=== PATIENT | female | born 1985 | race Caucasian/White ===

== ENCOUNTER 2020-04-26 13:37 | Outpatient (REF) | payer OTHER, SELFPAY | END 2020-04-26 13:38 | disposition home or self-care (01) | LOC: HO.LAB 13:37 | PROVIDERS: PCP Family Medicine; Visit Provider Internal Medicine | DX: Z20.828 Contact with and (suspected) exposure to other viral communicable diseases (principal) | CPT/HCPCS: 87635 ==

== ENCOUNTER 2022-03-09 10:42 | Emergency (ER) | payer OTHER, SELFPAY ==
[2022-03-09 11:54] VITALS: BP 109/70; PULSE 78; RESP 16; TEMP 36.3; O2SAT 99; BMI 31.7
[2022-03-09 14:07] VITALS: BP 130/80; PULSE 67; RESP 16; TEMP 37.1; O2SAT 100
--- NOTE | 2022-03-09 14:36 | ED.BACK ---
HPI - Back Pain/Injury General Chief Complaint: Back Pain/Injury Stated Complaint: Back Pain has Scoliosis Time Seen by Provider: 03/09/22 13:52 Source: patient Mode of arrival: ambulatory Limitations: no limitations History of Present Illness HPI Narrative: patient presents emergency department for evaluation of mid lateral left-sided back pain/ muscle spasming. She states that this began 2 days ago. She has trialed massage and heat to the area but this is not helping. She states that she has had similar pain on the right in the past approximately 1 year ago that responded to naproxen and a muscle relaxant. She does state that she does heavy lifting and exercise and thinks that she may have pulled a muscle in this area. She denies Fevers, chills, recent unintentional weight loss, chest pain, difficulty breathing, shortness of breath, cough, recent upper respiratory symptoms, history of DVT/ PE, history of coagulation disorders, personal history of cancer. MD elicited complaint: back pain Related Data Previous Rx's Medication Instructions Recorded valacyclovir 500 mg tablet 500 mg PO DAILY #30 tabs 09/11/20 cyclobenzaprine 10 mg tablet 10 mg PO BEDTIME PRN muscle spasm 03/09/22 #7 tabs naproxen 500 mg tablet 500 mg PO BID PRN pain #14 tabs 03/09/22 Allergies Allergy/AdvReac Type Severity Reaction Status Date / Time No Known Allergies Allergy Unverified 03/22/20 15:44 seasonal Allergy Unknown Uncoded 02/15/19 00:00 Review of Systems Review of Systems: Constitutional: No weight loss, fever, chills, weakness or fatigue. HEENT: No visual loss, blurred vision, double vision. No hearing loss, sneezing, congestion, runny nose or sore throat. Skin: No rash or itching. Cardiovascular: No chest pain, chest pressure or chest discomfort. No palpitations or pedal edema. Respiratory: No shortness of breath, cough or sputum production. Gastrointestinal: No anorexia, nausea, vomiting or diarrhea. No abdominal pain or blood in stool. Genitourinary: No burning micturition. No urinary frequency or incontinence. Neurologic: No headache, dizziness, syncope, unilateral weakness, ataxia, numbness or tingling in the extremities. No change in bowel or bladder control. Musculoskeletal: + Back pain as noted in HPI. No joint pain or stiffness. Hematologic: No bleeding or bruising. Lymphatics: No enlarged lymph nodes. Psychiatric:No depression or anxiety. Endocrine: No reports of sweating. No cold or heat intolerance. No polyuria or polydipsia. [facility] Past Medical History Attestation statement: The following information was validated with the patient. Source: old records reviewed Social History Social History Advance Directives: No Advance Directives Information Provided: Yes Physical Exam Vital Signs: Vital Signs: Last Vital Signs Temp 98.8 F 03/09/22 14:07 Pulse 67 03/09/22 14:07 Resp 16 03/09/22 14:07 BP 130/80 03/09/22 14:07 Pulse Ox 100 03/09/22 14:07 O2 Del Method 03/09/22 14:07 BMI result Body Mass Index 31.7 Vital signs have been reviewed as normal and appeared to be correct. Blood pressure normal.? Heart rate normal.? Respiration rate normal. Temperature normal.? Oxygen saturation normal. Appearance: Alert.?Oriented to person, place and time. No acute distress.?Normal affect. Eyes: Pupils equal, round and reactive to light.? ENT: Pharynx normal.?? Neck: Normal inspection.? Neck supple.?? CVS: Heart sounds normal. Normal heart rate and rhythm.? Pulses normal Respiratory: No respiratory distress.? Lung sounds clear to auscultation bilaterally?? Abdomen: Soft and non-tender. Skin: Skin warm and dry.? Normal skin color.? Normal skin turgor.?? Extremities: No lower extremity edema.? No calf ttp? Back: + mild paraspinal lateral Chest wall muscular tenderness from thoracic region No CVA tenderness. No midline spinal tenderness, step-off's, or deformity. Full ROM intact in bilateral lower extremities. No rashes, lesions, areas of induration or fluctuance, or signs of infection noted., Neuro: Moves all extremities spontaneously. 5/5 strength in hip extension/flexion, abduction, adduction. Sensation to light touch intact bilaterally. Patellar and Achilles reflex 2+ bilaterally. No ataxia, gait normal and steady.. No focal neuro deficits. Course Course Course Narrative: Patient is a 36-year-old female no significant past medical history presenting for evaluation of left lateral back/chest wall pain. She is overall well appearing, vital signs are stable, no respiratory distress, speaking clear full sentences. Not consistent with ACS/ PE/ pneumonia. Pain is most consistent with muscular pain, although cannot completely exclude herniated disc. Not consistent with Rib fracture, spinal fracture, spinal infection, epidural abscess, AAA, epidural abscess, or dissection. No high risk past medical history including incontinence, fever, immunosuppression, recent surgery or lumbar puncture, coagulopathy, significant trauma, recent unintentional weight loss, pulsatile mass, history of cancer, history of TB, history of IV drug use that would warrant MRI or CT. No imaging is currently indicated at this time. Plan for discharge home with naproxen and cyclobenzaprine, reviewed worrisome signs and symptoms to return back to emergency department for, advised follow-up with primary care provider, and patient agreed with plan. was discharged home in stable condition ambulatory steady gait out of the emergency department. Discharge Plan Discharge Clinical Impression: Strain of muscle at thorax level Patient Disposition: Home, Self-Care Instructions: Muscle Strain (ED) Additional Instructions: You have been given a new prescription for naproxen to use twice daily for pain, do not take additional [id number] ibuprofen/ Motrin / Advil/ Aleve/ aspirin while taking this medication. You have additionally been given a prescription for cyclobenzaprine, this is a muscle relaxer, it may make you drowsy, please take this at bedtime as needed for pain. Do not drive, consume alcohol, or go to work while taking this medication. Please contact your primary care provider and arrange for a follow-up visit. You may return to the emergency department any new or worsening symptoms or concerns. Prescriptions: New naproxen 500 mg tablet 500 mg PO BID PRN (Reason: pain) Qty: 14 0RF cyclobenzaprine 10 mg tablet 10 mg PO BEDTIME PRN (Reason: muscle spasm) Qty: 7 0RF No Action valacyclovir 500 mg tablet 500 mg PO DAILY Qty: 30 1RF
== END 2022-03-09 14:48 | disposition home or self-care (01) ==
PROVIDERS: Emergency Provider Emergency Medicine; PCP Family Medicine
DX: M54.50 Low back pain, unspecified (principal); Z79.899 Other long term (current) drug therapy
CPT/HCPCS: 99283

== ENCOUNTER 2022-03-31 09:25 | Outpatient (REF) | payer OTHER, SELFPAY ==
[2022-03-31 13:45] LABS: Influenza A PCR NEGATIVE (Negative); Influenza B PCR NEGATIVE (Negative); Resp Syncy Virus RNA Qual PCR NEGATIVE (Negative); SARS COV2 PCR INHOUSE NEGATIVE (Negative)
== END 2022-03-31 09:26 | disposition home or self-care (01) ==
LOC: HO.LAB 09:25
PROVIDERS: Visit Provider Nurse Practitioner Family
DX: Z20.822 Contact with and (suspected) exposure to COVID-19 (principal); J02.0 Streptococcal pharyngitis; J01.90 Acute sinusitis, unspecified
CPT/HCPCS: 0241U

== ENCOUNTER 2022-06-02 08:32 | Outpatient (REF) | payer OTHER, SELFPAY ==
[2022-06-02 11:19] LABS: Appearance Urine Clear; Color Urine Yellow; Glucose Urine UA Negative (Negative); Leukocyte Esterase Urine Negative (Negative); Nitrite Urine Negative (Negative); Specific Gravity - Urine <= 1.005 (1.005-1.025); Urine Blood Negative (Negative); Urine Ketones Negative (Negative); Urine Protein Negative (Neg-Trace)
[2022-06-02 12:26] LABS: Syphilis Screen Nonreactive (Nonreactive)
[2022-06-02 12:28] LABS: HIV AB/AG Nonreactive (Nonreactive); HIV Num 1 0.06 S/CO (0.00-0.99)
[2022-06-02 12:46] LABS: CT PCR NOT DETECTED (Not Detect.); NG PCR NOT DETECTED (Not Detect.)
[2022-06-02 13:01] LABS: Alanine Aminotransferase 20 U/L (0-31); Alkaline Phosphatase 54 U/L (39-117); Anion Gap 10 (12-20); Aspartate Amino Transferase 15 U/L (5-31); Bilirubin Total 0.2 mg/dL (0.0-1.0); Blood Urea Nitrogen 9 mg/dL (9-16); Calcium 9.4 mg/dL (8.4-10.2); Carbon Dioxide 28 mmol/L (22-29); Chloride 105 mmol/L (96-108); Cholesterol 187 mg/dL; Estimated Glomerular Filt Rate > 60; Glucose Fasting 78 mg/dL (60-99); HDL Cholesterol 37 mg/dL; LDL Cholesterol Calculated 131 mg/dl; Potassium 4.5 mmol/L (3.3-5.1); Sodium 138 mmol/L (135-145); TSH reflex Free T4 1.87 uIU/mL (0.32-4.0); Total Protein 6.8 g/dL (6.5-8.0); Triglycerides 97 mg/dL
== END 2022-06-02 08:33 | disposition home or self-care (01) ==
LOC: HO.WFDLDS 08:32
PROVIDERS: Visit Provider Family Medicine
DX: Z00.00 Encounter for general adult medical examination without abnormal findings (principal); Z11.3 Encounter for screening for infections with a predominantly sexual mode of transmission
CPT/HCPCS: 36415; 80053; 80061; 81003; 84443; 86780; 87389; 87491; 87591

== ENCOUNTER 2022-11-19 14:38 | Outpatient (REF) | payer OTHER, SELFPAY ==
[2022-11-20 17:07] LABS: CT PCR NOT DETECTED (Not Detect.); NG PCR NOT DETECTED (Not Detect.)
[2022-11-21 11:40] LABS: BV Int Neg Control Negative (Negative); BV Int Pos Control Positive (Positive)
[2022-11-27 09:23] LABS: HPV mRNA E6/E7 rflx Not Detected (Not Detected)
== END 2022-11-19 14:39 | disposition home or self-care (01) ==
LOC: HO.LNP 14:38
PROVIDERS: PCP Family Medicine; Visit Provider Advanced Practice Midwife
DX: Z01.419 Encounter for gynecological examination (general) (routine) without abnormal findings (principal); Z11.51 Encounter for screening for human papillomavirus (HPV); N92.1 Excessive and frequent menstruation with irregular cycle; N94.3 Premenstrual tension syndrome; R19.8 Other specified symptoms and signs involving the digestive system and abdomen; R13.10 Dysphagia, unspecified
CPT/HCPCS: 0353U; 87480; 87510; 87624; 87660; 88142

== ENCOUNTER 2023-02-10 07:37 | Outpatient (AMB) | payer OTHER, SELFPAY ==
--- NOTE | 2023-02-10 07:40 | A.OFFVIS_ITS ---
Intake Vital Signs 02/10/23 07:41 Height 5 ft 4 in Weight 190 lb 2 oz BMI 32.6 BP 114/66 Blood Pressure Location Lt brachial Position Sitting Pulse 66 Intake Visit Reasons: Dysphagia Intake Note: Patient new consult for dysphagia. Patient cc: swallowing problems with solid/liquid for a year, and acid reflex with burning sensation in her esophagus. Denies any other GI issues. 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 @ noc- waterbrash- No choking-nausea or vomiting however has wt gain-she does eat on the run with her schedule, understandable She does have mild swelling in her hands lower extremities however she has tried to be mindful of her sodium intake No abdominal pain, fever, chills hematemesis or hematochezia No reported bowel issue No cardiac or respiratory issues PFSH Medical History Scoliosis Family History Father Diabetes No family history of mental disorder Maternal Aunt No family history of mental disorder Lung cancer Social History Household Members: Spouse and Children Housing: House Alcohol intake: current Alcohol intake frequency: holidays/special occasions only Patient Tobacco Use Status: Never used Tobacco e-Cigarette/Vaping Use: Never Used service: No Current occupational status: employed Current occupational exposures/hazards: No Cognitive needs: No Hearing needs: No Vision needs: No Female Reproductive History Menstrual Age of Menarche: 10 Review of Systems Const All systems reviewed & are unremarkable except as noted in HPI and below Card Denies chest pain and Denies dyspnea Resp Denies dyspnea GI Denies abdominal pain, Denies change in bowel habits, Reports heartburn, Denies nausea and Denies vomiting Physical Exam Vital Signs: Last Vital Signs Pulse 66 02/10/23 07:41 BP 114/66 02/10/23 07:41 BMI result Body Mass Index 32.6 Const General: cooperative, healthy appearing, comfortable and no acute distress Orientation/consciousness: patient oriented x3 Limitations: no limitations Resp Effort & Inspection: normal respiratory effort and able to speak in complete sentences Auscultation: clear to auscultation bilaterally, no rales, no rhonchi and no wheezes Cardio Rate: regular rate Rhythm: regular rhythm Heart sounds: S1 normal heart sound present and S2 normal heart sound present GI Palpation (GI): Soft to palpation and nontender Auscultation: normal bowel sounds Skin General skin exam: no rashes or lesions noted Neuro General: patient oriented x3 Extrem Other: Mild edema -hands bilaterally General: Yes full ROM Psych Appearance: grossly normal and well kempt Mental Status: mental status grossly normal Speech and movement: Normal speech and movement present and Clear speech present Affect: normal affect Attitude: cooperative Thought process: Normal thought process present Thought content: Normal thought content present Assessment & Plan Assessment & Plan (1) Dysphagia: Comment: Greater than 1 year-liquids to force food bolus to pass Order placed by PCP for barium swallow however not scheduled as of yet No inhaler Code(s): R13.10 - Dysphagia, unspecified Plan: EGD possible dilation (2) GERD (gastroesophageal reflux disease): Comment: GERD, water brash Reflux precautions Continue omeprazole 40 mg will give trial to famotidine 40 mg as well Code(s): K21.9 - Gastro-esophageal reflux disease without esophagitis Plan: Continue omeprazole and add famotidine- Plan EGD possible dilation- r/o stricture, possible hiatal hernia, esophagitis, other endoscopic findings to account for her symptoms Orders: Orders EDG - GI Use Only Today Medications: New famotidine 40 mg PO DAILY 90 days 90 tabs 3RF omeprazole 40 mg (2 x 20 mg) PO DAILY 90 days 180 caps 3RF Patient Instructions: Very pleasant 37-year-old female with dysphagia, persistent GERD with waterbrash We reviewed reflux precautions avoid culprits-to include caffeine, nicotine, chocolate, peppermint, alcohol and remain upright 2-3 hours after eating especially here evening meal Schedule EGD, discussed procedure rare risks, need for escorted due to anesthesia she agrees to proceed Encouraged to call with any questions or concerns Appreciate the opportunity assist in care this pleasant patient Coding Level of Care Code New Pt Level 3 (90633) Diagnoses Dysphagia R13.10 GERD (gastroesophageal reflux disease) K21.9 Time Spent (min) 40
[2023-02-10 07:41] VITALS: BP 114/66; PULSE 66; BMI 32.6
== END 2023-02-10 08:12 | disposition home or self-care (01) ==
LOC: HO.HGIW 07:38
PROVIDERS: PCP Family Medicine; Visit Provider Physician Assistant
DX: R13.10 Dysphagia, unspecified (principal); K21.9 Gastro-esophageal reflux disease without esophagitis
CPT/HCPCS: 99203

== ENCOUNTER → 2023-02-10 07:37 | Outpatient (BNVA) | payer OTHER, SELFPAY | PROVIDERS: PCP Family Medicine; Visit Provider Physician Assistant | DX: K21.9 Gastro-esophageal reflux disease without esophagitis (principal); R13.10 Dysphagia, unspecified | CPT/HCPCS: 99202 ==

== ENCOUNTER 2023-06-30 09:49 | Day surgery (SDC) | payer OTHER, SELFPAY ==
[2023-06-25 11:10] VITALS: BMI 32.6
[2023-06-30 09:54] VITALS: BMI 32.1
[2023-06-30 10:01] VITALS: BP 129/77; PULSE 89; RESP 20; TEMP 36.1; O2SAT 98
[2023-06-30] MEDS: Lactated Ringers 1,000 ML 50 ML IVCONT (10:11)
[2023-06-30 10:21] LABS: UPreg QC Valid YES; Urine Pregnancy NEGATIVE (NEGATIVE)
--- NOTE | 2023-06-30 11:47 | HO.ANESPROP2 ---
[facility] Active Problems Active Problems: All Active Problems (Updated 06/30/23 @ 10:13 by Genie Rivera RN) Dysphagia (Acute) GERD (gastroesophageal reflux disease) (Acute) Problems with swallowing (Acute) Pain with bowel movements (Acute) Premenstrual symptom (Acute) Prolonged menstrual cycle (Acute) Well woman exam with routine gynecological exam (Acute) Adult general medical exam (Acute) Screening for cervical cancer (Acute) Breast cancer screening by mammogram (Acute) Low HDL (under 40) (Acute) Elevated LDL cholesterol level (Acute) History of lumpectomy of right breast (Acute) History of viral meningitis (Acute) Laboratory exam ordered as part of routine general medical examination (Acute) Acute sinus infection (Acute) Strep pharyngitis (Acute) Scoliosis (Acute) Past Medical History Medical History (Updated 06/30/23 @ 10:13 by Genie Rivera RN) Hx: meningitis GERD (gastroesophageal reflux disease) Scoliosis Patient : No Family History Family History Father Diabetes No family history of mental disorder Maternal Aunt No family history of mental disorder Lung cancer Family history of problems with anesthesia: No Surgical History Surgical History (Updated 06/30/23 @ 10:13 by Genie Rivera RN) Hx of wisdom tooth extraction Hx of lumpectomy Surgical history unknown History of Problems with Anesthesia: No Social History Social History Household Members: Spouse and Children Housing: House Alcohol intake: current Alcohol intake frequency: holidays/special occasions only Patient Tobacco Use Status: Never used Tobacco e-Cigarette/Vaping Use: Never Used Are you DNR?: No Advance Directives: No Advance Directives Information Provided: Yes Recently lost weight without trying: No Nutrition Risks: No Nutritional Risk Patient : No service: No Current occupational status: employed Current occupational exposures/hazards: No Cognitive needs: No Hearing needs: No Vision needs: No Meds Allergies Allergy/AdvReac Type Severity Reaction Status Date / Time No Known Allergies Allergy Verified 12/24/22 08:41 Active Medications: Current Medications Lactated Ringer's (Lr) 1,000 mls @ 50 mls/hr IVCONT .Q20H ANAIS Last Admin: 06/30/23 10:11 Dose: 50 mls/hr Ondansetron HCl (Ondansetron Hcl 4 Mg/2 Ml Vial) 4 mg IVPUSH ONCE PRN PRN Reason: Nausea and Vomiting Exam Height,Weight and Vital Signs: Height 5 ft 4 in Weight 84.912 kg Last Vital Signs Temp 97 F 06/30/23 10:01 Pulse 89 06/30/23 10:01 Resp 20 06/30/23 10:01 BP 129/77 06/30/23 10:01 Pulse Ox 98 06/30/23 10:01 O2 Del Method Room Air 06/30/23 10:01 Pertinent Lab Results Pertinent Lab Results: Laboratory Tests 06/30/23 09:50 Urine Test NEGATIVE Airway Mallampati Class: II TM Dist: >3cm Neck ROM: Full Loose/Missing/Broken Teeth: No Heart: rrr Lungs: clear Assessment and Plan Final Anesthetic Review Family History of Problems with Anesthesia: No History of Problems with Anesthesia: No ASA Class: II Final Preanesthetic Review: No Changes in Pt Med Stat, Meds/Allgs Chart Reviewed, Consent Obtained/Reviewed and Anes Risks/Benef Reviewed Patient Risk: Low Procedure Risk: Low Anesthetic Plan Anesthetic Plan: MAC: Disposition: Standard PACU
--- NOTE | 2023-06-30 11:49 | P.HPSUR_ITS ---
Pre-Procedural Eval Section A Date of Service: 06/30/23 Section B Chief Complaint: Dysphagia, unspecified Relevant Family History (Specify if Yes): No Relevant Social History: None Present Medications: see Short Stay Collaborative assessment Medical History: Significant History (Scoliosis) History of Previous Operations: No relevant previous surgery Allergies: Allergies Allergy/AdvReac Type Severity Reaction Status Date / Time No Known Allergies Allergy Verified 12/24/22 08:41 Review of Systems Sugical H&P ROS: Negative: Constitution, Cardiovascular, Respiratory, Neurological, Psychiatric, Hem-Onc, Allergic/Immunologic, Gastrointestinal, Genitourinary, Musculoskeletal, Integumentary, Endocrine and Eyes/Ears/Nose/Throat Exam Surgical H&P Exam: Normal: HEENT, Normal: Heart, Normal: Lungs, Normal: Extr emities, Normal: Abdomen, Normal: Skin and Normal: Neurological Plan Diagnosis/Plan: Unchanged I have reviewed the history and physical and performed a pertinent physical examination on my patient. No changes have occurred unless specified. Time Spent With Patient Time: Total time managing care of this patient today ____ minutes.
--- NOTE | 2023-06-30 12:16 | W.PM.OPN ---
Operative Note Operative Note Date of Service: 06/30/23 Narrative: Procedure Description: EGD Indication: GERD and dysphagia Anesthesia: MAC FLEXIBLE TRANSORAL UPPER GASTROINTESTINAL ENDOSCOPY UPPER ENDOSCOPY Consent: Indications for the procedure and potential complications of bleeding, perforation, reaction to medications and missed diagnosis were discussed with the patient and informed consent was obtained. Instrument: Olympus GIF H 190 J mid size upper endoscope Monitoring: Vital signs and clinical assessment, continuous EKG monitoring, Pulse oximetry, Carbon Dioxide monitoring and blood pressure monitoring were done throughout the procedure. Procedure: The patient was placed in the left lateral decubitis position and pre-procedure medications were administered and a bite block was placed. The endoscope was inserted into the mouth and advanced under direct vision to the third part of duodenum. A careful inspection was made as the upper endoscope was withdrawn including a retroflexed examination of the proximal stomach; Findings and interventions are described below. Findings: Larynx:normal Esophagus: GE junction at 33 cm, diaphragm hiatus at 36 cm, consistent with 3 cm sliding hiatal hernia, thick inflammed schatzki ring noted, dilated with balloon to 19 mm with some disruption noted, bx taken from GEJ, distal and proximal esophagus. proximal esophagus dilated to 17 mm Stomach: Patchy gastric erythema. Biopsies were obtained. Grade 2 flap valve on retroflexed examination of the cardia with hiatal hernial sac noted. Duodenum: Normal bulb and descending duodenum, Intervention: Biopsies as noted above, balloon dilation Impression/Findings: schatzki ring esophagitis hiatal hernia gastritis PLAN: reflux precautions check PPi compliance, consider changing PPI surgical referral for hiatal hernia repair can be discussed
[2023-06-30 12:18] VITALS: BP 117/85; PULSE 103; RESP 20; TEMP 36.8; O2SAT 97
[2023-06-30 12:33] VITALS: BP 127/70; PULSE 92; RESP 20; TEMP 36.7; O2SAT 98
== END 2023-06-30 14:01 | disposition home or self-care (01) ==
PROVIDERS: Anesthesiology; PCP Family Medicine; Visit Provider Internal Medicine Gastroenterology
PROC: 0DJ08ZZ Inspection of Upper Intestinal Tract, Via Natural or Artificial Opening Endoscopic (ICD-10-PCS; CPT 43235; principal; 2023-06-30 14:00)
DX: K22.2 Esophageal obstruction (principal); K20.80 Other esophagitis without bleeding; K21.9 Gastro-esophageal reflux disease without esophagitis; K44.9 Diaphragmatic hernia without obstruction or gangrene; K29.50 Unspecified chronic gastritis without bleeding; Z79.899 Other long term (current) drug therapy
CPT/HCPCS: 43249; 43239; 81025; 88305; 88342; C1726; J2704

== ENCOUNTER → 2023-06-30 09:49 | Outpatient (BNV) | payer OTHER, SELFPAY | PROVIDERS: PCP Family Medicine; Visit Provider Internal Medicine Gastroenterology | DX: K22.2 Esophageal obstruction (principal); K20.90 Esophagitis, unspecified without bleeding; K29.70 Gastritis, unspecified, without bleeding; K44.9 Diaphragmatic hernia without obstruction or gangrene | CPT/HCPCS: 43239; 43249 ==

== ENCOUNTER 2023-08-10 14:41 | Outpatient (AMB) | payer OTHER, SELFPAY ==
--- NOTE | 2023-08-10 14:42 | A.OFFVIS_ITS ---
Intake Vital Signs 08/10/23 14:44 Height 5 ft 4 in Weight 187 lb BMI 32.1 Blood Pressure Location Lt brachial Position Sitting Intake Visit Reasons: f/u egd Intake Note: Patient follow up for EGD results. Patient cc: abdominal bloating, acid reflex with burning sensation with a lot of gasses and some swallowing problems with liquid and solid. 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 VITAL SIGNS:see workflow HEENT: Nonicteric sclerae, PERRLA, EOMI. Oropharynx clear. Moist mucous memb ranes. Conjunctivae appear well perfused. No thyroid mass. CHEST: Chest wall is nontender. HEART: Regular rate and rhythm without murmurs. LUNGS: Clear to auscultation bilaterally. ABDOMEN: Soft, positive bowel sounds, nontender, no organomegaly.no flank tenderness SKIN: No rash, no excessive bruising, petechiae, or purpura. NEUROLOGIC: Cranial nerves II-XII intact without motor/sensory deficit. 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 and GERD changes on path PLAN: 1/ High dose PPI BID, can cut down after next visit depending on response 2/ advised to take MV and vit D suppleme nt 3/ repeat EGD in 3-5 yrs or so if ongoing issues then manometry [facility] Medical History (Updated 08/10/23 @ 15:26 by Carli Glover MD) Hx: meningitis GERD (gastroesophageal reflux disease) Scoliosis Surgical History History of esophagogastroduodenoscopy (EGD) Hx of wisdom tooth extraction Hx of lumpectomy Surgical history unknown Family History Father Diabetes No family history of mental disorder Maternal Aunt No family history of mental disorder Lung cancer Social History Household Members: Spouse and Children Housing: House Alcohol intake: current Alcohol intake frequency: holidays/special occasions only Patient Tobacco Use Status: Never used Tobacco e-Cigarette/Vaping Use: Never Used service: No Current occupational status: employed Current occupational exposures/hazards: No Cognitive needs: No Hearing needs: No Vision needs: No Female Reproductive History Menstrual Age of Menarche: 10 Physical Exam Vital Signs: BMI result Body Mass Index 32.1 Assessment & Plan Assessment & Plan (1) Dysphagia: Code(s): R13.10 - Dysphagia, unspecified Plan: PLAN: 1/ High dose PPI BID, can cut down after next visit depending on response 2/ advised to take MV and vit D supplement 3/ repeat EGD in 3-5 yrs or so if ongoing issues then manometry (2) GERD (gastroesophageal reflux disease): Comment: GERD, water brash Reflux precautions Continue omeprazole 40 mg will give trial to famotidine 40 mg as well Code(s): K21.9 - Gastro-esophageal reflux disease without esophagitis Plan: PLAN: 1/ High dose PPI BID, can cut down after next visit depending on response 2/ advised to take MV and vit D supplement 3/ repeat EGD in 3-5 yrs or so if ongoing issues then manometry Medications: New esomeprazole magnesium 40 mg PO BID 90 caps 2RF Discontinued esomeprazole magnesium Discontinued Reason: Doctor's Order 20 mg PO DAILY 90 caps 2RF omeprazole Discontinued Reason: Doctor's Order 40 mg PO DAILY 30 days 30 caps 3RF Coding Level of Care Code Est Pt Level 3 (67132) Diagnoses Dysphagia R13.10 GERD (gastroesophageal reflux disease) K21.9
[2023-08-10 14:44] VITALS: BMI 32.1
== END 2023-08-10 15:27 | disposition home or self-care (01) ==
PROVIDERS: PCP Family Medicine; Visit Provider Internal Medicine Gastroenterology
DX: R13.10 Dysphagia, unspecified (principal); K21.9 Gastro-esophageal reflux disease without esophagitis
CPT/HCPCS: 99213

== ENCOUNTER → 2023-08-10 14:41 | Outpatient (BNVA) | payer OTHER, SELFPAY | PROVIDERS: PCP Family Medicine; Visit Provider Internal Medicine Gastroenterology | DX: R13.10 Dysphagia, unspecified (principal); K21.9 Gastro-esophageal reflux disease without esophagitis; Z98.890 Other specified postprocedural states | CPT/HCPCS: 99212 ==

== ENCOUNTER 2023-11-20 08:47 | Outpatient (AMB) | payer OTHER, SELFPAY ==
[2023-11-20 09:06] VITALS: BP 124/70; PULSE 79; O2SAT 99; BMI 34.6
--- NOTE | 2023-11-20 09:06 | A.OFFPC_ITS ---
Vital Signs 11/20/23 09:06 Height 5 ft 4 in Weight 201 lb 6 oz BMI 34.6 BP 124/70 Blood Pressure Location Lt brachial Position Sitting Pulse 79 Pulse Source Pulse Oximeter Pulse Oximetry (%) 99 Oxygen Delivery Method Room Air Intake Visit Reasons: Extended exam with f/u labs and health maintenance Intake Note: Patient is here for her physical today. Patient would like her hormones checked, too. Allergies No Known Allergies Allergy (Verified 11/20/23 09:07) Medication List - Last Reconciled 11/20/23 by Jason Medina MD esomeprazole magnesium 40 mg PO BID famotidine 40 mg PO DAILY 90 days fluticasone propionate 50 mcg/actuation (Flonase Allergy Relief) 1 spray intranasal Q12H Tobacco use date assessed: 11/20/23 Dental Screening Dental Screen Date: 11/20/23 Did you have a dental visit in the last 12 months?: No Did you have a dental problem in the last 6 months where you did not have access to dental care?: Yes Was dental information given to patient?: Yes HPI Extended exam with f/u labs and health maintenance HPI Details 38 y/o female presents for an extended e xam with f/u labs and health maintenance. No recent CPE-labs to review. Pt requests to get her hormones checked. Hx of elevated LDL cholesterol at 131. Last pap smear was normal per pt. HPI Comments History of Present Illness Details Documentation assistance for Jason Medina MD, was provided by Forrest Murray, Senior Communications Engineer on 11/20/2023 9:19 AM EST. Bass, Dr. Medina, have read, observed, and verified documentation. PFSH Medical History Hx: meningitis GERD (gastroesophageal reflux disease) Scoliosis Surgical History History of esophagogastroduodenoscopy (EGD) Hx of wisdom tooth extraction Hx of lumpectomy Surgical history unknown Family History Father Diabetes No family history of mental disorder Maternal Aunt No family history of mental disorder Lung cancer Social History Household Members: Spouse and Children Housing: House Alcohol intake: current Alcohol intake frequency: holidays/special occasions only Patient Tobacco Use Status: Never used Tobacco e-Cigarette/Vaping Use: Never Used service: No Current occupational status: employed Current occupational exposures/hazards: No Cognitive needs: No Hearing needs: No Vision needs: No Female Reproductive History Menstrual Age of Menarche: 10 Questionnaire PHQ-9 Over the last 2 weeks, how often have you been bothered by any of the following problems? 1. Little interest or pleasure in doing things: not at all 2. Feeling down, depressed, or hopeless: not at all 3. Trouble falling or staying asleep, or sleeping too much: nearly every day 4. Feeling tired or having little energy: several days (Once in a while) 5. Poor appetite or overeating: not at all 6. Feeling bad about yourself - or that you are a failure or have let yourself or your family down: not at all 7. Trouble concentrating on things, such as reading the newspaper or watching television: several days 8. Moving or speaking so slowly that other people could have noticed. Or the opposite - being so fidgety or restless that you have been moving around a lot more than usual: nearly every day 9. Thoughts that you would be better off or of hurting yourself in some way: not at all Total score: 8 Depression Screening Interpretation: Positive Depression Screening Done: Yes 65793 - PHQ-9 Billing: Yes Source: Developed by Drs. Talat Marti, Nallely Green, Iam Pruitt and colleagues, with an educational marge from [employer]. Thrive Questionnaire Date Thrive assessed: 11/20/23 I am a: Patient What is your living situation today?: I have a steady place to live Within the past 12 months, did the food you bought not last and you didn't have the money to get more?: Never true Within the past 12 months, did you worry whether your food would run out before you got money to buy more?: Never true Do you have trouble paying for medicines?: No Do you have trouble getting transportation to medical appointments?: No Do you have trouble paying your heating and electricity bill?: No Do you have trouble taking care of your child, family member or friend?: No Do you have trouble with day-to-day activities such as bathing, preparing meals, shopping, managing finances, etc.?: No Are you currently unemployed and looking for a job?: No Are you interested in more education?: No THRIVE Score: 0 AUDIT C Alcohol Use Questionnaire (AUDIT-C) 1. How often do you have a drink containing alcohol?: Never 3. How often do you have six or more drinks on one occasion?: Never Total Score: 0 BHARATH-7 AMB Questionnaire BHARATH-7 Date BHARATH - 7 assessed: 11/20/23 Feeling nervous, anxious, or on edge: 0 = Not at all Not being able to stop or control worryin = Not at all Worrying too much about different things: 0 = Not at all Trouble relaxin = Several days Being so restless that it is hard to sit still: 3 = Nearly every day Becoming easily annoyed or irritable: 1 = Several days Feeling afraid as if something awful might happen: 0 = Not at all Total BHARATH-7 score (0-4 normal; 5-9 mild; 10-14 moderate; 15-21 severe): 5 Source: Developed by Drs. Talat Marti, Nallely Green, Iam Pruitt and colleagues, with an educational marge from [employer]. BHARATH-7 Assessment Billing BHARATH-7 Assessment Tool: BHARATH-7 Assessment 10191 Review of Systems Const Denies chills, Denies fatigue, Denies fever(s), Denies headache(s) and Denies weakness Eyes Denies change in vision ENT Denies dizziness, Denies headache(s), Denies hearing loss, Denies nasal congestion, Denies sinus pain, Denies sinus pressure and Denies sore throat Card Denies chest pain, Denies lightheadedness, Denies dyspnea and Denies other (palpitations) Resp Denies cough, Denies dyspnea and Denies wheezing GI Denies abdominal pain, Denies melena, Denies hematochezia, Denies change in bowel habits, Denies dyspepsia and Denies nausea Denies hematuria and Denies dysuria Musc Denies abnormal gait, Denies myalgias, Denies arthralgias, Denies numbness and Denies tingling Skin/Breast Denies rash, Denies unusual bruising and Denies wounds Neuro Denies abnormal gait, Denies dizziness, Denies headache(s), Denies memory loss, Denies numbness, Denies Sensory deficit (Neuro), Denies tingling and Denies weakness Psych Denies anxiety, Denies depression and Denies memory loss Endo Denies cold intolerance, Denies fatigue, Denies heat intolerance, Denies polydipsia and Denies polyuria Govind/Lymph Denies easy bleeding and Denies easy bruising Aller/Immun Denies wheezing Physical exam (Primary Care) Vital Signs: Last Vital Signs Pulse 79 11/20/23 09:06 BP 124/70 11/20/23 09:06 Pulse Ox 99 11/20/23 09:06 Oxygen Delivery Method Room Air 11/20/23 09:06 BMI result Body Mass Index 34.6 Tobacco/Smoking Status: Tobacco use Status Tobacco use date assessed 11/20/23 11/20/23 09:12 Patient Tobacco Use Status Never used Tobacco 11/20/23 09:06 e-Cigarette/Vaping Use Never Used 11/20/23 09:06 PHQ-9: PHQ-9 Score PHQ-9: Total score 8 11/20/23 09:19 Depression Screening Interpretation: Positive Thrive Assessment: Date of Thrive Assessment Date Thrive assessed 11/20/23 11/20/23 09:19 Const General: no acute distress, well developed, alert and awake Nutritional Appearance: well nourished and obese Orientation/consciousness: patient oriented x3 HENMT Head: Yes normocephalic and Yes atraumatic Ears: hearing grossly normal bilaterally and TM's normal bilaterally General nose exam: Normal external nose present and Normal nares present Mouth: Normal oral and palatal mucosa present and moist mucous membranes Teeth and gingiva: dentition normal Throat: Yes posterior oropharynx normal Eyes General: appearance normal, both eyes and all related structures Pupils: Equal, round and reactive pupils present and Pupil accommodation reflex normal EOM: EOMs intact bilaterally Neck Neck: Yes normal visual inspection, Yes no lymphadenopathy and Yes trachea midline Thyroid: Thyroid normal Carotids: no bruits Lymphatic: no lymphadenopathy noted Chest Chest palpation & inspection: normal inspection of the chest Resp Effort & Inspection: normal respiratory effort Auscultation: clear to auscultation bilaterally Cardio Rate: regular rate Rhythm: regular rhythm Heart sounds: S1 normal heart sound present, S2 normal heart sound present, no gallops, no murmurs and no rubs Bruits: no abdominal aortic bruits and no carotid bruits GI Palpation (GI): No Abdominal aortic bruit present, Soft to palpation, nontender, No hepatosplenomegaly present and No Rebound tenderness present Auscultation: normal bowel sounds General: Yes no CVA tenderness Back/Spine/Pelvis Back: no CVA tenderness Cervical Spine: cervical ROM normal and No Cervical spine tenderness Thoracic/Lumbar Spine: thoraco-lumbar ROM normal, No pain with thoraco-lumbar ROM, No thoracic spinal tenderness and No lumbar spinal tenderness Skin Lesions: no lesions Rashes: no rashes Trauma: no lacerations or abrasions Wounds: no wounds Nails: normal Neuro General: patient oriented x3 Cranial nerves: Yes Equal, round and reactive pupils present Cognition (Neuro): normal cognition Gait exam (Neuro): Normal gait present Motor exam (neuro): 5/5 motor strength present throughout Sensory Exam: No Sensory deficit (Neuro) Deep tendon reflexes (DTR's): Right patellar reflex intensity grade: 2+ and Left patellar reflex intensity grade: 2+ Extrem General: Yes normal to inspection and No edema Psych Appearance: grossly normal Affect: normal affect Attitude: cooperative Thought process: Normal thought process present Assessment and Plan Assessment & Plan (1) Elevated LDL cholesterol level: Code(s): E78.00 - Pure hypercholesterolemia, unspecified Plan: Patient?has?elevated?LDL?at?prior?lab?check Has?also?gained?weight. 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?and?Schatzki's?ring She?is?on?high-dose?PPI?and?followed?by?GI Follow-up?with?Gastroenterology?as?recommended.??Continue?high-dose?PPI?for?now (3) Screening for cervical cancer: Comment: 11/19/2022 Pap is negative with negative HPV Code(s): Z12.4 - Encounter for screening for malignant neoplasm of cervix Plan: Up-to-date.??Followed?by?[facility]?data entry coordinator (4) Breast cancer screening by mammogram: Code(s): Z12.31 - Encounter for screening mammogram for malignant neoplasm of breast Plan: No?first-degree?relatives?with?breast?cancer Will?start?screening?at?age?40 (5) Adult general medical exam: Code(s): Z00.00 - Encounter for general adult medical examination without abnormal findings Plan: 38-year-old?female?presents?for?an?extended?exam Encouraged?healthy?diet?with?active?lifestyle?and?plenty?of?exercise Orders: Orders Lutenizing Hormone Today N92.1 - Excessive and frequent menstruation with irregular cycle Estrogen Today N92.1 - Excessive and frequent menstruation with irregular cycle Progesterone Today N92.1 - Excessive and frequent menstruation with irregular cycle Comprehensive [place]. Panel Fast Today N92.1 - Excessive and frequent menstruation with irregular cycle, Z00.00 - Encounter for general adult medical examination without abnormal findings Microalbumin, Random (w Creat) Today I10 - Essential (primary) hypertension, N92.1 - Excessive and frequent menstruation with irregular cycle TSH reflex Free T4 Today N92.1 - Excessive and frequent menstruation with irregular cycle, Z00.00 - Encounter for general adult medical examination without abnormal findings UA and rflx microscopic Today N92.1 - Excessive and frequent menstruation with irregular cycle, Z00.00 - Encounter for general adult medical examination without abnormal findings Follicle Stimulating Hormone Today N92.1 - Excessive and frequent menstruation with irregular cycle Complete Blood Count Auto Diff Today N92.1 - Excessive and frequent menstruation with irregular cycle, Z00.00 - Encounter for general adult medical examination without abnormal findings Lipid Panel Today N92.1 - Excessive and frequent menstruation with irregular cycle, Z00.00 - Encounter for general adult medical examination without abnormal findings Coding Level of Care Code Est Pt Level 4 (01961) Diagnoses Elevated LDL cholesterol level E78.00 GERD (gastroesophageal reflux disease) K21.9 Screening for cervical cancer Z12.4 Breast cancer screening by mammogram Z12.31 Adult general medical exam Z00.00 Additional Codes BHARATH-7 Assessment Billing - BHARATH-7 Assessment Tool: BHARATH-7 Assessment [id number] ([id number])
== END 2023-11-20 09:46 | disposition home or self-care (01) ==
PROVIDERS: Visit Provider Family Medicine
DX: Z00.00 Encounter for general adult medical examination without abnormal findings (principal); E78.00 Pure hypercholesterolemia, unspecified; K21.9 Gastro-esophageal reflux disease without esophagitis; Z12.31 Encounter for screening mammogram for malignant neoplasm of breast
CPT/HCPCS: 99214; 99395

== ENCOUNTER 2023-11-21 07:26 | Outpatient (REF) | payer OTHER, SELFPAY ==
[2023-11-21 07:43] LABS: MANUAL DIFF FLAG NO
[2023-11-21 07:54] LABS: Basophils Percent Auto 0.6 % (0-2); Eosinophils Absolute Auto 0.1 X10*3/uL (0.0-0.4); Hemoglobin 14.6 g/dl (12.0-16.0); Imm Gran Abs Auto 0.01 X10*3/uL (0.00-0.03); Imm Gran Pct Auto 0.1 % (0.0-0.4); Lymphocytes Percent Auto 42.8 % (20-40); Mean Corpuscular HGB Conc 32.4 g/dl (31.0-35.0); Mean Corpuscular Hemoglobin 29.1 pg (27.0-33.0); Mean Corpuscular Volume 89.8 fL (80.0-98.0); Monocytes Absolute Auto 0.5 X10*3/uL (0.1-1.2); Monocytes Percent Auto 7.2 % (2-11); Neutrophils Absolute Auto 3.3 x10*3/uL (2.0-8.3); Neutrophils Percent Auto 47.3 % (45-73); Platelet Count 333 X10*3/uL (160-400); Red Blood Count 5.01 X10*6/uL (4.20-5.50); Red Cell Distribution Width 12.5 % (11.0-16.0); White Blood Count 6.9 X10*3/uL (4.8-10.8)
[2023-11-21 08:55] LABS: Alanine Aminotransferase 27 U/L (0-31); Albumin Level 4.1 g/dL (3.5-5.0); Alkaline Phosphatase 63 U/L (39-117); Anion Gap 12 (12-20); Aspartate Amino Transferase 18 U/L (5-31); Bilirubin Total 0.5 mg/dL (0.0-1.0); Blood Urea Nitrogen 14 mg/dL (9-16); Calcium 9.1 mg/dL (8.4-10.2); Carbon Dioxide 25 mmol/L (22-29); Chloride 105 mmol/L (96-108); Cholesterol 212 mg/dL (<200); Estimated Glomerular Filt Rate > 60; Glucose Fasting 90 mg/dL (60-99); HDL Cholesterol 38 mg/dL (>40); LDL Cholesterol Calculated 148 mg/dL (<100); Potassium 4.5 mmol/L (3.3-5.1); Sodium 137 mmol/L (135-145); Total Protein 7.5 g/dL (6.5-8.0); Triglycerides 130 mg/dL (<150)
[2023-11-21 09:14] LABS: TSH reflex Free T4 1.54 uIU/mL (0.32-4.0)
[2023-11-21 09:40] LABS: Appearance Urine Clear; Color Urine Yellow; Glucose Urine UA Negative (Negative); Leukocyte Esterase Urine Small (1+) (Negative); Nitrite Urine Negative (Negative); PH 6.5 (5.0-9.0); UMIC TRIGGER UA YES; Urine Blood Negative (Negative); Urine Ketones Negative (Negative); Urine Protein Negative (Neg-Trace)
[2023-11-21 10:20] LABS: Bacteria Urine 1+ (None Seen); Hyaline Casts Urine 0-2 /LPF (0-2); RBC Urine 0-2 /HPF (0-2); Squamous Epithelial Cell Urine 0-2 /HPF (0-2); WBC Urine 0-5 /HPF (0-5)
[2023-11-24 18:03] LABS: Follicle Stimulating Hormone 6.2 mIU/mL
[2023-11-28 18:29] LABS: Estrogen 131 pg/mL
[2023-11-29 04:38] LABS: Progesterone <0.1 ng/mL
== END 2023-11-21 07:27 | disposition home or self-care (01) ==
LOC: HO.LAB 07:26
PROVIDERS: PCP Family Medicine; Visit Provider Family Medicine
DX: Z00.00 Encounter for general adult medical examination without abnormal findings (principal); N92.1 Excessive and frequent menstruation with irregular cycle
CPT/HCPCS: 36415; 80053; 80061; 81001; 82672; 83001; 83002; 84144; 84443; 85025

== ENCOUNTER 2023-11-25 08:49 | Outpatient (AMB) | payer OTHER, SELFPAY ==
[2023-11-25 08:55] VITALS: BP 118/70; BMI 34.5
--- NOTE | 2023-11-25 08:55 | A.OFFVIS_ITS ---
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 She has not having any tester printed circuit boards concerns other than it feels like her periods coming twice a month at times --usually at beginning of the month and the end the month, they are shorter than they used to be, and she has not complaining about that, but they still cause her very severe cramping and pain in her uterus when she sits while she has her period. She says she started period she was 10 years old and her mother started when she was 12-13 she said her mother's 59 and just recently went through menopause . She does not think she is having any kind prolapse issues (questioned in relation to the pain she experiences that her menses not all the time) she has no issues with incontinence. 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 She does have a bicycle and tries to get 30 minutes a day at home and she has a dog that she takes out for a walk and evenings. She has not sexually active and if she became sexually active she would use condoms but floor getting her tubes tied because she has not interested at all childbearing she also does not get hot flashes per se but is warm a lot and she just had a whole lot of fasting blood work and asked her primary for different kinds of hormone levels to check her cortisol level. She has not interested in any kind of artificial means of treatment and would prefer to do things naturally but wanted to know where she was. She does not need a Pap smear this year as last 1 was normal last year and previous ones were normal she would history of an abnormal 1 in 2006. [facility] Medical History Hx: meningitis GERD (gastroesophageal reflux disease) Scoliosis Surgical History History of esophagogastroduodenoscopy (EGD) Hx of wisdom tooth extraction Hx of lumpectomy Surgical history unknown Family History Father Diabetes No family history of mental disorder Maternal Aunt No family history of mental disorder Lung cancer Social History Household Members: Spouse and Children Housing: House Alcohol intake: current Alcohol intake frequency: holidays/special occasions only Patient Tobacco Use Status: Never used Tobacco e-Cigarette/Vaping Use: Never Used service: No Current occupational status: employed Current occupational exposures/hazards: No Cognitive needs: No Hearing needs: No Vision needs: No Female Reproductive History Menstrual Age of Menarche: 10 Duration of menses: 3-5 days Date of last menstrual period: 11/15/23 control method: none Full term: 1 Date of last pap smear: 11/25/22 (negative,2019 WNL) History of abnormal pap smear: Yes (2006,abn.) Physical Exam Vital Signs: Last Vital Signs BP 118/70 11/25/23 08:55 BMI result Body Mass Index 34.5 Const General: healthy appearing, comfortable, no acute distress, well developed and alert Nutritional Appearance: average body habitus Orientation/consciousness: patient oriented x3 Limitations: no limitations HEENT Head: Yes normocephalic Neck Neck: Yes normal visual inspection Thyroid: Thyroid normal Chest Chest palpation & inspection: normal inspection of the chest Breast/axilla inspection: normal inspection of the breasts and normal inspection of the axillae Breast/axilla palpation: normal palpation of the breasts and normal palpation of the axillae Resp Effort & Inspection: normal respiratory effort GI Inspection: Yes normal to inspection, No Abdominal wall edema and No distended Palpation (GI): Soft to palpation and nontender Other: External exam within normal limits labia are slightly dry vagina pink moist normal mucosa and normal mucus cervix multiparous with normal mucus secretions. Uterus cervix posterior to midposition not at all prolapsed ( I was checking because for description of the pain she experiences with her menses) General: Yes bladder normal to palpation External Female Exam: normal external appearance and normal appearance of the urethra Speculum Exam - Vagina: normal appearance of the vagina, normal palpation and normal vaginal discharge Speculum Exam - Cervix: normal appearance of the cervix, normal palpation and nontender Bimanual exam- vagina & uterus: normal bimanual exam, normal palpation, uterine size normal, bladder normal to palpation, consistency normal, normal palpation, uterine mobility normal, uterine shape normal, No Cervical tenderness present, non-tender and no cervical motion tenderness Bimanual Exam- Adnexa, other: normal adnexae, no masses, normal and No adnexal tenderness Neuro General: patient oriented x3 Assessment & Plan Assessment & Plan (1) Well woman exam with routine gynecological exam: Code(s): Z01.419 - Encounter for gynecological examination (general) (routine) without abnormal findings Category: Medical (2) Screening for cervical cancer: Comment: 11/19/2022 Pap is negative with negative HPV Code(s): Z12.4 - Encounter for screening for malignant neoplasm of cervix Category: Medical (3) Breast cancer screening: Code(s): Z12.39 - Encounter for other screening for malignant neoplasm of breast Category: Medical Plan -----Discussed in this visit the following: healthy balanced diet, regular and consistent exercise, getting recommended health screens, doing the best she can for her particular health concerns, kegel exercises, pap smear screening and followup recommendations, mammography screening and SBE, normal changes in cycles in her life stage---routine mammograms will start at age 40, she did not need a Pap smear this year and she is not sexually active and so no need for any kind of testing, has no symptoms of infection either. . Discussed her challenges, discussed the common experience of weight gain and the challenges of trying to lose it and the subtle premenopausal symptoms that start accruing as time goes by, as with vaginal dryness. She has not sexually active, discussed remedies if she were ( water based lubricants). Discussed the challenges of her work environment and needing to self protect against ticks and other hazards which unfortunately leads to the challenges of overheating and hot feet. Discussed the more natural ways of trying to deal with weight loss and focusing on protein intake and water and vegetables which she does and exercise which she does as well she also is very attentive to getting enough water intake and voiding when she needs to. She will be awaiting the results of all of the labs that she had done with her primary care provider and will have a tele visit with him to review them all. rtc 1 yr.l Coding Level of Care Code Est Pt Prev Care 18-39y([id number]) Diagnoses Well woman exam with routine gynecological exam Z01.419 Screening for cervical cancer Z12.4 Breast cancer screening Z12.39
== END 2023-11-25 09:48 | disposition home or self-care (01) ==
PROVIDERS: Visit Provider Advanced Practice Midwife
DX: Z01.419 Encounter for gynecological examination (general) (routine) without abnormal findings (principal); Z12.4 Encounter for screening for malignant neoplasm of cervix; Z12.39 Encounter for other screening for malignant neoplasm of breast
CPT/HCPCS: 99395

== ENCOUNTER → 2023-11-25 08:49 | Outpatient (BNVA) | payer OTHER, SELFPAY | PROVIDERS: Visit Provider Advanced Practice Midwife | DX: Z01.419 Encounter for gynecological examination (general) (routine) without abnormal findings (principal) | CPT/HCPCS: 99395 ==

== ENCOUNTER 2023-12-22 17:11 | Outpatient (AMB) | payer OTHER, SELFPAY ==
--- NOTE | 2023-12-22 17:06 | A.OFFPC_ITS ---
Intake Visit Reasons: f/u CPE-labs via telemedicine Intake Note: Patient is scheduled to follow up on blood work today. Allergies No Known Allergies Allergy (Verified 12/22/23 17:09) Tobacco use date assessed: 12/22/23 Dental Screening Dental Screen Date: 11/20/23 HPI f/u CPE-labs via telemedicine HPI Details 38 y/o female presents to f/u CPE-labs v ia telemedicine. Labs were drawn 11/21/23. Reviewed labs with pt. Triglycerides 130. TC 212. LDL 148. HDL low at 38. PFSH Medical History Hx: meningitis GERD (gastroesophageal reflux disease) Scoliosis Surgical History (Reviewed 11/25/23 @ 08:59 by Elizabeth Storey [facility]) History of esophagogastroduodenoscopy (EGD) Hx of wisdom tooth extraction Hx of lumpectomy Surgical history unknown Family History Father Diabetes No family history of mental disorder Maternal Aunt No family history of mental disorder Lung cancer Social History (Reviewed 11/25/23 @ 08:59 by Elizabeth Storey [facility]) Household Members: Spouse and Children Housing: House Alcohol intake: current Alcohol intake frequency: holidays/special occasions only Patient Tobacco Use Status: Never used Tobacco e-Cigarette/Vaping Use: Never Used service: No Current occupational status: employed Current occupational exposures/hazards: No Cognitive needs: No Hearing needs: No Vision needs: No Female Reproductive History Menstrual Age of Menarche: 10 Questionnaire Thrive Questionnaire Date Thrive assessed: 11/20/23 BHARATH-7 AMB Questionnaire BHARATH-7 Date BHARATH - 7 assessed: 11/20/23 Source: Developed by Drs. Talat Marti, Nallely Green, Iam Pruitt and colleagues, with an educational marge from [employer]. Review of Systems Const Denies chills, Denies fatigue, Denies fever(s), Denies headache(s) and Denies weakness ENT Denies dizziness and Denies headache(s) Card Denies dyspnea Resp Denies cough, Denies dyspnea, Denies wheezing and Denies other (shortness of breath) Musc Denies numbness and Denies tingling Neuro Denies dizziness, Denies headache(s), Denies numbness, Denies tingling and Denies weakness Psych Denies anxiety and Denies depression Endo Denies fatigue Aller/Immun Denies wheezing Physical exam (Primary Care) Tobacco/Smoking Status: Tobacco use Status Tobacco use date assessed 12/22/23 12/22/23 17:10 Patient Tobacco Use Status Never used Tobacco 12/22/23 17:10 e-Cigarette/Vaping Use Never Used 12/22/23 17:10 Thrive Assessment: Date of Thrive Assessment Date Thrive assessed 11/20/23 12/22/23 17:10 Telehealth Telehealth Telehealth Platform: Telephone Location of provider rendering services: practice address Location of patient: address on file Patient Identification confirmed using: Name, : Yes Telehealth method: voice only Patient verbally consented to treatment: Yes Patient verbally consented to billing insurance company: Yes Patient informed of any privacy concerns related to visit: Yes Assessment and Plan Assessment & Plan (1) Hyperlipidemia: Code(s): E78.5 - Hyperlipidemia, unspecified Plan: LDL?cholesterol?is?148;?too?high. HDL?is?also?low Encouraged?a?diet?lower?in?saturated?fats?and?cholesterol.??Encouraged?exercise. Discussed?weight?loss Will?r epeat?in?3?months.??We?did?discuss?that?if?she?is?not?able?to?bring?these?into?c ontrolled?range,?would?want?to?discuss?medication. (2) Low HDL (under 40): Code(s): E78.6 - Lipoprotein deficiency Plan: As?above Orders: Orders Comprehensive [place]. Panel Fast Today E78.5 - Hyperlipidemia, unspecified, Z00.00 - Encounter for general adult medical examination without abnormal findings Lipid Panel Today E78.5 - Hyperlipidemia, unspecified, Z00.00 - Encounter for general adult medical examination without abnormal findings Coding Level of Care Code Tele Est Pt Level 2 (64080) Diagnoses Hyperlipidemia E78.5 Low HDL (under 40) E78.6
== END 2023-12-22 17:15 | disposition home or self-care (01) ==
LOC: HO.HMGFM 17:11
PROVIDERS: PCP Family Medicine; Visit Provider Family Medicine
DX: E78.5 Hyperlipidemia, unspecified (principal); E78.6 Lipoprotein deficiency
CPT/HCPCS: 99212

== ENCOUNTER 2024-11-01 13:14 | Outpatient (AMB) | payer OTHER, SELFPAY ==
--- NOTE | 2024-11-01 13:27 | AM.OFFWIN_ITS ---
Intake Vital Signs 11/01/24 13:51 Weight 202 lb BP 118/70 Blood Pressure Location Rt brachial Position Sitting Pulse 76 Pulse Source Pulse Oximeter Pulse Oximetry (%) 97 Oxygen Delivery Method Room Air Intake Visit Reasons: EP rash on neck area Intake Note: Patient here for rash on neck that has been going on for a while now but it is now starting to spread down the neck and across. Patient Tobacco Use Status: Never used Tobacco Allergies No Known Allergies Allergy (Verified 11/01/24 13:53) Do you need a note to return to daycare/school/sports/work: No HPI HPI Comments History of Present Illness Details History of Present Illness - The patient is a 39-year-old female pr esenting with a persistent rash. - The persistent rash is located on the neck, present for several months or longer, and is intensely itchy. - The onset of the rash coincided with t he use of Differin gel for acne vulgaris, which caused dryness and likely irritation after running down the neck during face washing. - She discontinued Differin four to five months ago, resumed Neutrogena products, yet the rash persisted and expanded to the chest. - Attempts to alleviate the rash with hy drocortisone cream stopped the itching but did not further resolve the condition. - The patient's acne vulgaris history in volves significant face, chest, and back outbreaks, with perimenopausal changes currently localizing the acne to the jawline and lip area. Physical Exam General: Cooperative, healthy appearing, comfortable, no acute distress and well developed Orientation: Patient oriented x3 Limitations: No limitations Head: Normal to inspection Ears: Hearing grossly normal bilaterally Nose: Normal External nose present Face and sinus: Normal facial exam, see below Eyes: Appearance normal, both eyes and all related structures Neck: see below Respiratory: Normal respiratory effort and able to speak in complete sentences. Skin: Rash noted on neck, extending down to upper chest, 10cm x 4cm area which is dry, raised & erythematous; comedones around mouth area Neuro: Patient oriented x3 Extremities: Normal to inspection [facility] Medical History Hx: meningitis GERD (gastroesophageal reflux disease) Scoliosis Surgical History History of esophagogastroduodenoscopy (EGD) Hx of wisdom tooth extraction Hx of lumpectomy Surgical history unknown Family History Father Diabetes No family history of mental disorder Maternal Aunt No family history of mental disorder Lung cancer Social History Household Members: Spouse and Children Housing: House Alcohol intake: current Alcohol intake frequency: holidays/special occasions only Patient Tobacco Use Status: Never used Tobacco e-Cigarette/Vaping Use: Never Used service: No Current occupational status: employed Current occupational exposures/hazards: No Cognitive needs: No Hearing needs: No Vision needs: No Female Reproductive History Menstrual Age of Menarche: 10 Review of Systems Const All systems reviewed & are unremarkable except as noted in HPI and below Physical Exam Vital Signs: Last Vital Signs Pulse 76 11/01/24 13:51 BP 118/70 11/01/24 13:51 Pulse Ox 97 11/01/24 13:51 Oxygen Delivery Method Room Air 11/01/24 13:51 Assessment & Plan Assessment & Plan (1) Contact dermatitis: Code(s): L25.9 - Unspecified contact dermatitis, unspecified cause Qualifiers: Contact dermatitis type: allergic Contact dermatitis trigger: cosmetics Qualified Code(s): L23.2 - Allergic contact dermatitis due to cosmetics Plan: I have prescribed clobetasol to treat the contact dermatitis which appears to have been exacerbated by previous Differin use, applying twice daily for up to ten days. Patient education highlighted hand-washing post-application and avoiding sensitive areas. Patient was informed and verbally consented to the use of an ambient scribe for clinic note documentation during this visit. (2) Acne: Code(s): L70.9 - Acne, unspecified Qualifiers: Acne type: unspecified acne Qualified Code(s): L70.9 - Acne, unspecified Plan: For acne vulgaris, clindamycin topical gel is recommended, targeting jawline and lip region lesions. The patient understands clindamycin?s sunlight restrictions and will monitor improvement closely, with further dermatology consultation if needed. Medications: New clobetasol 0.05% 1 appl topical BID 1 week 45 grams 0RF clindamycin phosphate 1% 1 appl topical BEDTIME 60 mL 0RF Coding Level of Care Code Est Pt Level 4 (04986) Diagnoses Allergic contact dermatitis due to cosmetics L23.2 Contact dermatitis type: allergic Contact dermatitis trigger: cosmetics Acne, unspecified acne type L70.9 Acne type: unspecified acne
[2024-11-01 13:51] VITALS: BP 118/70; PULSE 76; O2SAT 97
== END 2024-11-01 15:04 | disposition home or self-care (01) ==
PROVIDERS: PCP Family Medicine; Visit Provider Physician Assistant
DX: L23.2 Allergic contact dermatitis due to cosmetics (principal); L70.9 Acne, unspecified

== ENCOUNTER → 2024-11-01 13:14 | Outpatient (BNVA) | payer OTHER, SELFPAY | PROVIDERS: PCP Family Medicine; Visit Provider Physician Assistant | DX: L23.2 Allergic contact dermatitis due to cosmetics (principal); L70.9 Acne, unspecified | CPT/HCPCS: 99212 ==

== ENCOUNTER 2024-11-17 15:31 | Outpatient (AMB) | payer OTHER, SELFPAY ==
--- NOTE | 2024-11-17 16:08 | A.OFFPC_ITS ---
Vital Signs 11/17/24 16:19 Height 5 ft 4 in Weight 205 lb 2 oz BMI 35.2 BP 120/70 Blood Pressure Location Rt brachial Position Sitting Respiration 16 Pulse 80 Pulse Source Pulse Oximeter Temp 98.0 F Temp Source Oral Pulse Oximetry (%) 96 Oxygen Delivery Method Room Air Intake Visit Reasons: CPE Intake Note: patient is scheduled for cpe patient would also like to be referred out to derm to get her skin rash under control and possibly a new script to hold he off till she can get in with dermatology as the cream she was prescribed has not been working effectively. Telephone Solicitor Supervisor Required: No Is last menstrual period known: Yes Last menstrual period: 10/31/24 Post menopausal: No Patient : No Allergies No Known Allergies Allergy (Verified 11/17/24 16:14) Medication List - Last Reconciled 11/17/24 by Jason Medina MD clindamycin phosphate 1% 1 appl topical BEDTIME esomeprazole magnesium 40 mg PO BID fluticasone propionate 50 mcg/actuation (Flonase Allergy Relief) 1 spray intranasal Q12H Tobacco use date assessed: 12/22/23 Dental Screening Dental Screen Date: 11/20/23 HPI CPE HPI Details 39 y/o female presents for an extended e xam with f/u labs and health maint. No recent labs to review. Has complaints of a rash. She notes she had went to urgent care and was diagnosed with dermatitis. Was given a steroid cream which had helped. She has been using zyrtec. She reports extremity swelling when she goes out for a walk outside, particularly her hands. HPI Comments History of Present Illness Details Documentation assistance for Jason Medina MD, was provided by Forrest Murray,? Prototype Engineer on 11/17/2024 at 4:44 PM ABHIJIT. Shelia, Dr. Medina, have read, observed, and verified documentation. ? PFSH Medical History Hx: meningitis GERD (gastroesophageal reflux disease) Scoliosis Surgical History History of esophagogastroduodenoscopy (EGD) Hx of wisdom tooth extraction Hx of lumpectomy Surgical history unknown Family History Father Diabetes No family history of mental disorder Maternal Aunt No family history of mental disorder Lung cancer Social History Household Members: Spouse and Children Housing: House Alcohol intake: current Alcohol intake frequency: holidays/special occasions only Patient Tobacco Use Status: Never used Tobacco e-Cigarette/Vaping Use: Never Used service: No Current occupational status: employed Current occupational exposures/hazards: No Cognitive needs: No Hearing needs: No Vision needs: No Female Reproductive History Menstrual Age of Menarche: 10 Date of last menstrual period: 10/31/24 Questionnaire PHQ-9 Over the last 2 weeks, how often have you been bothered by any of the following problems? 1. Little interest or pleasure in doing things: not at all 2. Feeling down, depressed, or hopeless: not at all 3. Trouble falling or staying asleep, or sleeping too much: several days 4. Feeling tired or having little energy: not at all 5. Poor appetite or overeating: not at all 6. Feeling bad about yourself - or that you are a failure or have let yourself or your family down: several days 7. Trouble concentrating on things, such as reading the newspaper or watching television: several days 8. Moving or speaking so slowly that other people could have noticed. Or the opposite - being so fidgety or restless that you have been moving around a lot more than usual: not at all 9. Thoughts that you would be better off or of hurting yourself in some way: not at all Total score: 3 Source: Developed by Drs. Talat Marti, Nallely Green, Iam Pruitt and colleagues, with an educational marge from [employer]. Thrive Questionnaire Date Thrive assessed: 11/20/23 I am a: Patient What is your living situation today?: I have a steady place to live Within the past 12 months, did the food you bought not last and you didn't have the money to get more?: Never true Within the past 12 months, did you worry whether your food would run out before you got money to buy more?: Never true Do you have trouble paying for medicines?: No Do you have trouble getting transportation to medical appointments?: No Do you have trouble paying your heating and electricity bill?: I choose not to answer this question Do you have trouble taking care of your child, family member or friend?: No Do you have trouble with day-to-day activities such as bathing, preparing meals, shopping, managing finances, etc.?: No Are you currently unemployed and looking for a job?: I choose not to answer this question Are you interested in more education?: No Please select the resources that you would like help with: None Currently or been in a relationship where the following occur: I choose not to answer THRIVE Score: 0 AUDIT C Alcohol Use Questionnaire (AUDIT-C) 1. How often do you have a drink containing alcohol?: Never Total Score: 0 BHARATH-7 AMB Questionnaire HBARATH-7 Date BHARATH - 7 assessed: 11/20/23 Feeling nervous, anxious, or on edge: 1 = Several days Not being able to stop or control worryin = Not at all Worrying too much about different things: 0 = Not at all Trouble relaxin = Several days Being so restless that it is hard to sit still: 0 = Not at all Becoming easily annoyed or irritable: 1 = Several days Feeling afraid as if something awful might happen: 0 = Not at all Total BHARATH-7 score (0-4 normal; 5-9 mild; 10-14 moderate; 15-21 severe): 3 Source: Developed by Drs. Talat Marti, Nallely Green, Iam Pruitt and colleagues, with an educational marge from [employer]. Review of Systems Const Denies chills, Denies fatigue, Denies fever(s), Denies headache(s) and Denies weakness Eyes Denies change in vision ENT Denies dizziness, Denies headache(s), Denies hearing loss, Denies nasal congestion, Denies sinus pain, Denies sinus pressure and Denies sore throat Card Denies chest pain, Denies lightheadedness, Denies dyspnea and Denies other (palpitations) Resp Denies cough, Denies dyspnea and Denies wheezing GI Denies abdominal pain, Denies melena, Denies hematochezia, Denies change in bowel habits, Denies dyspepsia and Denies nausea Denies hematuria and Denies dysuria Musc Denies abnormal gait, Denies myalgias, Denies arthralgias, Denies numbness and Denies tingling Skin/Breast Reports rash Neuro Denies abnormal gait, Denies dizziness, Denies headache(s), Denies memory loss, Denies numbness, Denies Sensory deficit (Neuro), Denies tingling and Denies weakness Psych Denies anxiety, Denies depression and Denies memory loss Endo Denies cold intolerance, Denies fatigue, Denies heat intolerance, Denies polydipsia and Denies polyuria Govind/Lymph Denies easy bleeding and Denies easy bruising Aller/Immun Denies wheezing Physical exam (Primary Care) Vital Signs: Last Vital Signs Temp 98.0 F 11/17/24 16:19 Pulse 80 11/17/24 16:19 Resp 16 11/17/24 16:19 BP 120/70 11/17/24 16:19 Pulse Ox 96 11/17/24 16:19 Oxygen Delivery Method Room Air 11/17/24 16:19 BMI result Body Mass Index 35.2 Tobacco/Smoking Status: Tobacco use Status Tobacco use date assessed 12/22/23 11/17/24 16:09 Patient Tobacco Use Status Never used Tobacco 11/17/24 16:09 e-Cigarette/Vaping Use Never Used 11/17/24 16:09 PHQ-9: PHQ-9 Score PHQ-9: Total score 3 11/17/24 16:37 Thrive Assessment: Date of Thrive Assessment Date Thrive assessed 11/20/23 11/17/24 16:09 Currently or been in a relationship where the following occur: I choose not to answer Const General: no acute distress, well developed, alert and awake Nutritional Appearance: well nourished Orientation/consciousness: patient oriented x3 [facility] Head: Yes normocephalic and Yes atraumatic Ears: hearing grossly normal bilaterally and TM's normal bilaterally General nose exam: Normal external nose present and Normal nares present Mouth: Normal oral and palatal mucosa present and moist mucous membranes Teeth and gingiva: dentition normal Throat: Yes posterior oropharynx normal Eyes General: appearance normal, both eyes and all related structures Pupils: Equal, round and reactive pupils present and Pupil accommodation reflex normal EOM: EOMs intact bilaterally Neck Neck: Yes normal visual inspection, Yes no lymphadenopathy and Yes trachea midline Thyroid: Thyroid normal Carotids: no bruits Lymphatic: no lymphadenopathy noted Chest Chest palpation & inspection: normal inspection of the chest Resp Effort & Inspection: normal respiratory effort Auscultation: clear to auscultation bilaterally Cardio Rate: regular rate Rhythm: regular rhythm Heart sounds: S1 normal heart sound present, S2 normal heart sound present, no gallops, no murmurs and no rubs Bruits: no abdominal aortic bruits and no carotid bruits GI Palpation (GI): No Abdominal aortic bruit present, Soft to palpation, nontender, No hepatosplenomegaly present and No Rebound tenderness present Auscultation: normal bowel sounds General: Yes no CVA tenderness Back/Spine/Pelvis Back: no CVA tenderness Cervical Spine: cervical ROM normal and No Cervical spine tenderness Thoracic/Lumbar Spine: thoraco-lumbar ROM normal, No pain with thoraco-lumbar ROM, No thoracic spinal tenderness and No lumbar spinal tenderness Skin Lesions: no lesions Rashes: no rashes Trauma: no lacerations or abrasions Wounds: no wounds Nails: normal Neuro General: patient oriented x3 Cranial nerves: Yes Equal, round and reactive pupils present Cognition (Neuro): normal cognition Gait exam (Neuro): Normal gait present Motor exam (neuro): 5/5 motor strength present throughout Sensory Exam: No Sensory deficit (Neuro) Deep tendon reflexes (DTR's): Right patellar reflex intensity grade: 2+ and Left patellar reflex intensity grade: 2+ Extrem General: Yes normal to inspection and No edema Psych Appearance: grossly normal Affect: normal affect Attitude: cooperative Thought process: Normal thought process present Coding Level of Care Code Est Pt Level 4 (98806) Diagnoses Rash R21 Hand swelling M79.89 Screening for cervical cancer Z12.4 Adult general medical exam Z00.00 GERD (gastroesophageal reflux disease) K21.9 Assessment & Plan Assessment & Plan (1) Rash: Code(s): R21 - Rash and other nonspecific skin eruption Category: Medical Plan: Rash?on?neck?and?face No?swelling?of?lips?or?tongue.??No?swallowing?difficulties Will?give?her?a?short?course?of?prednisone She?still?has?clobetasol?which?had?helped?previously?and?she?can?use?some?of?thi s?is?well Referred?to?immunology?and?patient?wants?referral?to?Dermatology?as?she?is?michael g?difficulty?with?rash?and?her?prior?issues?with?acne. 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 She?has?S?omeprazole.??She?says?symptoms?are?not?daily?and?she?takes?medication? intermittently When?sh e?gets?symptoms?she?takes?the?medication?in?uses?Tums?if?she?is?still?having?pro blems. She?can?also?try?famotidine?which?is?OTC Already?elevating?head?of?bed Avoiding?trigger?foods?and not?eating?too?close?to?bed?or?over?filling Follow-up?GI Orders: Orders Comprehensive [place]. Panel Fast Today Z00.00 - Encounter for general adult medical examination without abnormal findings Lipid Panel Today Z00.00 - Encounter for general adult medical examination without abnormal findings UA CC w/rflx Micro + Cult Today Z00.00 - Encounter for general adult medical examination without abnormal findings CRP High Sensitivity Today M79.89 - Other specified soft tissue disorders Microalbumin, Random (w Creat) Today I10 - Essential (primary) hypertension TSH reflex Free T4 Today Z00.00 - Encounter for general adult medical examination without abnormal findings Erythrocyte Sedimentation Rate Today M79.89 - Other specified soft tissue dis orders Complete Blood Count Auto Diff Today M79.89 - Other specified soft tissue disorders, Z00.00 - Encounter for general adult medical examination without abnormal findings Rheumatoid Factor Today M79.89 - Other specified soft tissue disorders CHALINO Reflex Titer and Pattern Today M79.89 - Other specified soft tissue d isorders Referrals Allergy & Immunology Referral R21 - Rash and other nonspecific skin eruption Dermatology Referral R21 - Rash and other nonspecific skin eruption Medications: New prednisone 40 mg (2 x 20 mg) PO DAILY 5 days 10 tabs 0RF cetirizine (All Day Allergy (cetirizine)) 10 mg PO DAILY 90 days PRN 90 tabs 0RF allergy symptoms Refilled clobetasol 0.05% 1 appl topical BID 1 week 45 grams 0RF
[2024-11-17 16:19] VITALS: BP 120/70; PULSE 80; RESP 16; TEMP 36.7; O2SAT 96; BMI 35.2
== END 2024-11-17 16:56 | disposition home or self-care (01) ==
LOC: HO.HMCFM 15:31
PROVIDERS: PCP Family Medicine; Visit Provider Family Medicine
DX: R21 Rash and other nonspecific skin eruption (principal); M79.89 Other specified soft tissue disorders; Z12.4 Encounter for screening for malignant neoplasm of cervix; Z00.00 Encounter for general adult medical examination without abnormal findings; K21.9 Gastro-esophageal reflux disease without esophagitis

== ENCOUNTER → 2024-11-17 15:31 | Outpatient (BNVA) | payer OTHER, SELFPAY | PROVIDERS: PCP Family Medicine; Visit Provider Family Medicine | DX: Z00.00 Encounter for general adult medical examination without abnormal findings (principal); M79.89 Other specified soft tissue disorders; K21.9 Gastro-esophageal reflux disease without esophagitis; L30.9 Dermatitis, unspecified | CPT/HCPCS: 99212 ==

== ENCOUNTER 2024-12-10 07:20 | Outpatient (REF) | payer OTHER, SELFPAY ==
[2024-12-10 07:38] LABS: MANUAL DIFF FLAG NO
[2024-12-10 08:53] LABS: Basophils Percent Auto 0.7 % (0-2); Eosinophils Absolute Auto 0.1 X10*3/uL (0.0-0.4); Eosinophils Percent Auto 2.3 % (0-4); Hemoglobin 13.9 g/dl (12.0-16.0); Imm Gran Abs Auto 0.01 X10*3/uL (0.00-0.03); Imm Gran Pct Auto 0.2 % (0.0-0.4); Lymphocytes Absolute Auto 2.6 X10*3/uL (1.2-4.9); Lymphocytes Percent Auto 42.8 % (20-40); Mean Corpuscular HGB Conc 33.1 g/dl (31.0-35.0); Mean Corpuscular Hemoglobin 29.2 pg (27.0-33.0); Mean Corpuscular Volume 88.2 fL (80.0-98.0); Mean Platelet Volume 9.6 fL (9.4-12.3); Monocytes Absolute Auto 0.4 X10*3/uL (0.1-1.2); Monocytes Percent Auto 5.9 % (2-11); Neutrophils Absolute Auto 2.9 x10*3/uL (2.0-8.3); Neutrophils Percent Auto 48.1 % (45-73); Platelet Count 358 X10*3/uL (160-400); Red Blood Count 4.76 X10*6/uL (4.20-5.50); Red Cell Distribution Width 12.9 % (11.0-16.0); White Blood Count 6.1 X10*3/uL (4.8-10.8)
[2024-12-10 09:08] LABS: Appearance Urine Clear; Color Urine Yellow; Glucose Urine UA Negative (Negative); Leukocyte Esterase Urine Negative (Negative); Nitrite Urine Negative (Negative); PH 6.5 (5.0-9.0); UMIC TRIGGER UACC YES; Urine Blood Trace (Negative); Urine Ketones Negative (Negative); Urine Protein Negative (Neg-Trace)
[2024-12-10 09:14] LABS: Bacteria Urine None Seen (None Seen); Hyaline Casts Urine 0-2 /LPF (0-2); RBC Urine 0-2 /HPF (0-2); Squamous Epithelial Cell Urine 0-2 /HPF (0-2); WBC Urine 0-5 /HPF (0-5)
[2024-12-10 09:30] LABS: Erythrocyte Sedimentation Rate 18 MM/HR (0-20)
[2024-12-10 09:41] LABS: Rheumatoid Factor < 13.0 IU/mL (<15.0)
[2024-12-10 09:46] LABS: Alanine Aminotransferase 32 U/L (0-31); Albumin Level 4.1 g/dL (3.5-5.0); Alkaline Phosphatase 63 U/L (39-117); Anion Gap 10 (12-20); Aspartate Amino Transferase 19 U/L (5-31); Bilirubin Total 0.4 mg/dL (0.0-1.0); Blood Urea Nitrogen 11 mg/dL (9-16); Calcium 9.1 mg/dL (8.4-10.2); Carbon Dioxide 25 mmol/L (22-29); Chloride 109 mmol/L (96-108); Cholesterol 233 mg/dL (<200); Estimated Glomerular Filt Rate > 60; Glucose Fasting 84 mg/dL (60-99); HDL Cholesterol 36 mg/dL (>40); LDL Cholesterol Calculated 165 mg/dL (<100); Sodium 140 mmol/L (135-145); Total Protein 7.1 g/dL (6.5-8.0); Triglycerides 160 mg/dL (<150)
[2024-12-10 09:53] LABS: TSH reflex Free T4 1.55 uIU/mL (0.32-4.0)
[2024-12-10 10:02] LABS: Creatinine Urine 62.84 mg/dL; Microalbumin Urine < 5.0 mg/L
[2024-12-13 07:58] LABS: CRP High Sensitivity 2.2 mg/L
[2024-12-14 15:44] LABS: Anti Nuclear Antibody Screen NEGATIVE (NEGATIVE)
== END 2024-12-10 07:21 | disposition home or self-care (01) ==
LOC: HO.LAB 07:20
PROVIDERS: PCP Family Medicine; Visit Provider Family Medicine
DX: Z00.00 Encounter for general adult medical examination without abnormal findings (principal); E78.5 Hyperlipidemia, unspecified; M79.10 Myalgia, unspecified site; I10 Essential (primary) hypertension
CPT/HCPCS: 36415; 80053; 80061; 81001; 81003; 82043; 82570; 84443; 85025; 85652; 86038; 86141; 86431

== ENCOUNTER → 2024-12-16 10:08 | Outpatient (BNVA) | payer OTHER, SELFPAY | PROVIDERS: PCP Family Medicine; Visit Provider Family Medicine ==

== ENCOUNTER → 2024-12-16 10:08 | Outpatient (AMB) | payer OTHER, SELFPAY ==
--- NOTE | 2024-12-16 10:01 | MHC.PC.OV ---
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 Also checking inflammatory markers as she gets hand swelling. Labs drawn 12/10/24. Reviewed labs with pt. Mildly elevated ALT of 32. Triglycerides 160. TC 233. LDL 165. HDL low at 36. Rash has been improving. Has an appt. with immunology. [facility] Medical History Hx: meningitis GERD (gastroesophageal reflux disease) Scoliosis Surgical History History of esophagogastroduodenoscopy (EGD) Hx of wisdom tooth extraction Hx of lumpectomy Surgical history unknown Family History Father Diabetes No family history of mental disorder Maternal Aunt No family history of mental disorder Lung cancer Social History Household Members: Spouse and Children Housing: House Alcohol intake: current Alcohol intake frequency: holidays/special occasions only Patient Tobacco Use Status: Never used Tobacco e-Cigarette/Vaping Use: Never Used service: No Current occupational status: employed Current occupational exposures/hazards: No Cognitive needs: No Hearing needs: No Vision needs: No Female Reproductive History Menstrual Age of Menarche: 10 Questionnaire Thrive Questionnaire Date Thrive assessed: 11/20/23 BHARATH-7 AMB Questionnaire BHARATH-7 Date BHARATH - 7 assessed: 11/20/23 Source: Developed by Drs. Talat Marti, NallelyIam Bermudez and colleagues, with an educational marge from [employer]. Physical exam (Primary Care) Tobacco/Smoking Status: Tobacco use Status Tobacco use date assessed 12/22/23 12/16/24 10:04 Patient Tobacco Use Status Never used Tobacco 12/16/24 10:04 e-Cigarette/Vaping Use Never Used 12/16/24 10:04 Thrive Assessment: Date of Thrive Assessment Date Thrive assessed 11/20/23 12/16/24 10:04 Telehealth Telehealth Telehealth Platform: Telephone Location of provider rendering services: practice address Location of patient: address on file Patient Identification confirmed using: Name, : Yes Telehealth method: voice only Patient verbally consented to treatment: Yes Patient verbally consented to billing insurance company: Yes Patient informed of any privacy concerns related to visit: Yes Minutes spent on Phone/Video with Pt.: 9 Coding Level of Care Code Tele Est Pt Level 2 (58195) Diagnoses Hand swelling M79.89 Hyperlipidemia E78.5 Elevated ALT measurement R74.01 Assessment & Plan Assessment & Plan (1) Hand swelling: Code(s): M79.89 - Other specified soft tissue disorders Category: Medical Plan: This?resolved?with?prednisone She?has?an?appointment?with?immunology?for?allergies (2) Hyperlipidemia: Code(s): E78.5 - Hyperlipidemia, unspecified Category: Medical Plan: LDL?cholesterol?is?much?too?high Start?atorvastatin Work?on?a?diet?low?in?saturated?fats?and?cholesterol Will?recheck?in?2?months (3) Elevated ALT measurement: Code(s): R74.01 - Elevation of levels of liver transaminase levels Category: Medical Plan: Mild?elevation?in?ALT Hydrate?well Will?repeat Orders: Orders Comprehensive [place]. Panel Fast Today R74.01 - Elevation of levels of liver transaminase levels, Z00.00 - Encounter for general adult medical examination without abnormal findings Lipid Panel Today E78.00 - Pure hypercholesterolemia, unspecified, Z00.00 - Encounter for general adult medical examination without abnormal findings Medications: New atorvastatin 20 mg PO BEDTIME 90 days 90 tabs 3RF
== END ==
LOC: HO.HMCFM 10:08
PROVIDERS: PCP Family Medicine; Visit Provider Family Medicine
DX: M79.89 Other specified soft tissue disorders (principal); E78.5 Hyperlipidemia, unspecified; R74.01 Elevation of levels of liver transaminase levels

== ENCOUNTER 2025-02-27 08:31 | Outpatient (REF) | payer OTHER, SELFPAY ==
[2025-02-27 09:34] LABS: Alanine Aminotransferase 31 U/L (0-31); Albumin Level 4.3 g/dL (3.5-5.0); Alkaline Phosphatase 67 U/L (39-117); Anion Gap 10 (12-20); Aspartate Amino Transferase 24 U/L (5-31); Blood Urea Nitrogen 7 mg/dL (9-16); Calcium 9.1 mg/dL (8.4-10.2); Carbon Dioxide 28 mmol/L (22-29); Chloride 106 mmol/L (96-108); Cholesterol 135 mg/dL (<200); Estimated Glomerular Filt Rate > 60; HDL Cholesterol 32 mg/dL (>40); Potassium 4.2 mmol/L (3.3-5.1); Sodium 140 mmol/L (135-145); Total Protein 6.9 g/dL (6.5-8.0); Triglycerides 105 mg/dL (<150)
[2025-02-27 09:59] LABS: Appearance Urine Clear; Glucose Urine UA Negative (Negative); PH 8.5 (5.0-9.0); Specific Gravity - Urine <= 1.005 (1.005-1.025)
== END 2025-02-27 08:32 | disposition home or self-care (01) ==
LOC: HO.LAB 08:31
PROVIDERS: PCP Family Medicine; Visit Provider Family Medicine
DX: Z00.00 Encounter for general adult medical examination without abnormal findings (principal); E78.00 Pure hypercholesterolemia, unspecified; R74.01 Elevation of levels of liver transaminase levels
CPT/HCPCS: 36415; 80053; 80061; 81003

== ENCOUNTER → 2025-02-28 16:06 | Outpatient (AMB) | payer OTHER, SELFPAY ==
--- NOTE | 2025-02-28 16:02 | MHC.PC.OV ---
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 Had started atorvastatin 20 mg daily at last visit. LDL cholesterol now to HDL remains below 40 ALT was mildly elevated at 32 and now decreased to 31 which is within normal range. Patient has been taking atorvastatin but she says she wants to discontinue this. She plans to increase exercise and is building a treadmill. REPLACED BY [facility] Medical History Hx: meningitis GERD (gastroesophageal reflux disease) Scoliosis Surgical History History of esophagogastroduodenoscopy (EGD) Hx of wisdom tooth extraction Hx of lumpectomy Surgical history unknown Family History Father Diabetes No family history of mental disorder Maternal Aunt No family history of mental disorder Lung cancer Social History Household Members: Spouse and Children Housing: House Alcohol intake: current Alcohol intake frequency: holidays/special occasions only Patient Tobacco Use Status: Never used Tobacco e-Cigarette/Vaping Use: Never Used Patient : No service: No Current occupational status: employed Current occupational exposures/hazards: No Cognitive needs: No Hearing needs: No Vision needs: No Female Reproductive History Menstrual Age of Menarche: 10 Date of last menstrual period: 02/21/25 Questionnaire Thrive Questionnaire Date Thrive assessed: 11/20/23 BHARATH-7 AMB Questionnaire BHARATH-7 Date BHARATH - 7 assessed: 11/20/23 Source: Developed by Drs. Talat Marti, Nallely Green, Iam Pruitt and colleagues, with an educational marge from [employer]. Review of Systems Const Denies chills, Denies fatigue, Denies fever(s), Denies headache(s) and Denies weakness ENT Denies dizziness and Denies headache(s) Card Denies chest pain, Denies lightheadedness, Denies dyspnea and Denies other (Palpitations) Resp Denies cough, Denies dyspnea, Denies wheezing and Denies other ( shortness of breath) Musc Denies numbness and Denies tingling Neuro Denies dizziness, Denies headache(s), Denies numbness, Denies tingling, Denies paresthesias and Denies weakness Psych Denies anxiety and Denies depression Endo Denies fatigue Aller/Immun Denies wheezing Physical exam (Primary Care) Tobacco/Smoking Status: Tobacco use Status Tobacco use date assessed 02/28/25 02/28/25 16:05 Patient Tobacco Use Status Never used Tobacco 02/28/25 16:03 e-Cigarette/Vaping Use Never Used 02/28/25 16:03 Thrive Assessment: Date of Thrive Assessment Date Thrive assessed 11/20/23 02/28/25 16:03 Telehealth Telehealth Telehealth Platform: Telephone Location of provider rendering services: practice address Location of patient: address on file Patient Identification confirmed using: Name, : Yes Telehealth method: voice only Patient verbally consented to treatment: Yes Patient verbally consented to billing insurance company: Yes Patient informed of any privacy concerns related to visit: Yes Minutes spent on Phone/Video with Pt.: 7 Coding Level of Care Code Tele Est Pt Level 2 (34986) Diagnoses Hyperlipidemia E78.5 Low HDL (under 40) E78.6 Elevated ALT measurement R74.01 Assessment & Plan Assessment & Plan (1) Hyperlipidemia: Code(s): E78.5 - Hyperlipidemia, unspecified Category: Medical Plan: Patient started atorvastatin 20 mg daily at last office visit. LDL cholesterol has decreased from 165 down to 82. HDL cholesterol is still low. She says that she still wants to control her cholesterol levels with lifestyle changes. She says she will finish up the bottle and then switch to lifestyle changes including exercise. She says she is putting together a treadmill. Given that her cholesterol levels were quite high, it is unclear she will be able to reach goal with lifestyle changes only. Repeat labs are ordered and she get these done prior to our next visit. (2) Low HDL (under 40): Code(s): E78.6 - Lipoprotein deficiency Category: Medical Plan: Mildly low HDL Encouraged exercise Will recheck at next visit (3) Elevated ALT measurement: Code(s): R74.01 - Elevation of levels of liver transaminase levels Category: Medical Plan: Liver enzymes were mildly elevated. She has been working on good hydration Now within normal range Will recheck these again prior to next visit Orders: Orders Lipid Panel Today E78.5 - Hyperlipidemia, unspecified, Z00.00 - Encounter for general adult medical examination without abnormal findings Comprehensive [place]. Panel Fast Today E78.5 - Hyperlipidemia, unspecified, Z00.00 - Encounter for general adult medical examination without abnormal findings
== END ==
LOC: HO.HMCFM 16:06
PROVIDERS: PCP Family Medicine; Visit Provider Family Medicine
DX: E78.5 Hyperlipidemia, unspecified (principal); E78.6 Lipoprotein deficiency; R74.01 Elevation of levels of liver transaminase levels